=== PATIENT | male | born 1955 | race Caucasian/White ===

== ENCOUNTER 2018-03-02 17:39 | Observation (INO) ==
[2018-03-02] MEDS ORDERED: Sodium Chlor 0.9% Inj 500 ML IV.SIG SCH (18:00)
--- NOTE | 2018-03-02 18:28 | XR ---
EXAM DATE: 03/02/2018 5:56 PM EDT AGE/SEX: 62 years / Male INDICATIONS: Short of breath. CLINICAL DATA: This is the patient's initial encounter. Patient reports that signs and symptoms have been present for 1 day and indicates a pain score of 0/10. MEDICAL/SURGICAL HISTORY: None. . left shoulder. COMPARISON: [facility] [place], 05/12/[place]. . FINDINGS: A single AP view of the chest demonstrates the lungs to be symmetrically aerated without evidence of mass, infiltrate or effusion. The cardiomediastinal contours are unremarkable. Surgical hardware is seen at the proximal left humerus from prior fracturing.. CONCLUSION: No acute cardiopulmonary process. Electronically signed by: Finesse Zhang MD 03/02/2018 6:27 PM EDT
[2018-03-02 18:53] LABS: Alanine Aminotransferase 34 U/L (12-78)
[2018-03-02 18:56] LABS: Baso % (Auto) 0.2 % (0.0-2.0); Eos # (Auto) 0.1 th/mm3 (0.0-0.4); Eos % (Auto) 0.8 % (0.0-4.0); Hematocrit 34.1 % (39.0-51.0); Hemoglobin 11.8 gm/dL (13.0-17.0); Lymph # (Auto) 2.3 th/mm3 (1.0-4.8); Lymph % (Auto) 14.6 % (9.0-44.0); Mean Corpuscular HGB Conc 34.7 % (32.0-36.0); Mean Corpuscular Hemoglobin 39.7 pg (27.0-34.0); Mean Corpuscular Volume 114.3 fL (80.0-100.0); Mean Platelet Volume 8.9 fL (7.0-11.0); Mono % (Auto) 6.4 % (0.0-8.0); Neut # (Auto) 12.2 th/mm3 (1.8-7.7); Platelet Count 359 th/mm3 (150-450); Red Blood Count 2.99 mil/mm3 (4.50-5.90); Red Cell Distribution Width 16.8 % (11.6-17.2); White Blood Count 15.6 th/mm3 (4.0-11.0)
[2018-03-02 18:57] LABS: Albumin 2.6 g/dL (3.4-5.0); Anion Gap 12 meq/L (5-15); Aspartate Aminotransferase 45 U/L (15-37); Blood Urea Nitrogen 58 mg/dL (7-18); Carbon Dioxide 24.8 meq/L (21.0-32.0); Chloride 110 meq/L (98-107); Glomerular Filtration Rate 43 mL/min (>89); Glucose,Random 116 mg/dL (74-106); Magnesium 1.7 mg/dL (1.5-2.5); Sodium 147 meq/L (136-145)
--- NOTE | 2018-03-02 19:08 | CT ---
EXAM DATE: 03/02/2018 6:01 PM EDT AGE/SEX: 62 years / Male INDICATIONS: Altered mental status. CLINICAL DATA: This is the patient's initial encounter. Patient reports that signs and symptoms have been present for 1 day and indicates a pain score of 0/10. MEDICAL/SURGICAL HISTORY: None. None. RADIATION DOSE: 38.46 CTDI (mGy) COMPARISON: No prior exams available for comparison. TECHNIQUE: CT of the head without contrast. Using automated exposure control and adjustment of the mA and/or kV according to patient size, radiation dose was kept as low as reasonably achievable to ob tain optimal diagnostic quality images. DICOM format image data is available electronically for revi ew and comparison. FINDINGS: Cerebrum: The ventricles are normal for age. Cortical atrophy. No evidence of midline shift, mass l esion, hemorrhage or acute infarction. No extraaxial fluid collections are seen. Posterior Fossa: The cerebellum and brainstem are intact. The 4th ventricle is midline. The cerebe llopontine angle is unremarkable. Extracranial: The visualized portion of the orbits is intact. Skull: The calvaria is intact. No evidence of skull fracture. CONCLUSION: 1. Cortical atrophy. 2. No acute intracranial abnormality. . Electronically signed by: Bacilio Vail MD 03/02/2018 7:06 PM EDT
--- NOTE | 2018-03-02 19:27 | ED ---
HPI General Chief complaint: Weakness Stated complaint: EXPARTE/VCSO Time Seen by Provider: 03/02/18 17:40 Source: patient, EMS and other (EXPARTE) Mode of arrival: EMS Limitations: altered mental status History of Present Illness HPI Narrative: 62-year-old male the presents to the ED for evaluation of expected. Patient was expected by police as patient apparently has been not taking care of himself. Apparently per family he is basically not taking care of himself. Not eating. Not drinking. Not taking his medications. This appears to have been going for some time. EVAC was called and brought the patient here. Per EVAC the house where he lives is filthy and does not seem like he is taking care of it at all. Patient himself has no complaints. He does appear to have what appears to be purulence to his eyes. When asked how long he had an infection in his eye he states that nobody has ever told him that he had problems with his eyes. He does appear to go in and out of alteration. He denies any chest pain or shortness of breath. Denies any urinary symptoms. No abdominal pain. He does seem to minimalize everything but also he does appear to be some what demented. He is not a great historian. He does apparently take lisinopril and Prilosec as his only medications. Related Data Home Medications Medication Instructions Recorded Confirmed Prilosec 03/02/18 lisinopril 03/02/18 Allergies Allergy/AdvReac Type Severity Reaction Status Date / Time No Known Allergies Uncoded 06/10/09 16:15 Review of Systems ROS: all other systems reviewed are negative [facility] Social History Social History Smoking Status: Unknown if ever smoked How Often Do You Have a Drink Containing Alcohol: Unable to Obtain Immunization History Tetanus Immunization: Unsure Exam Narrative Exam Narrative: GENERAL: Well appearing SKIN: Focused skin assessment warm/dry. HEAD: Atraumatic. Normocephalic. EYES: Pupils equal and round 4 mms reactive to light and accommodation.. No scleral icterus. No injection or drainage. EOM intact bilaterally. Patient does have some drainage from both eyes but more noticeable on the left than the right. Patient does have conjunctival irritation in the left eye not on the right. Eyelids themselves appear to have blepharitis on the with swelling of the eyelids. ENT: No nasal bleeding or discharge. Mucous membranes pink and moist. Tongue is midline. No uvula deviation. NECK: Trachea midline. No JVD. CARDIOVASCULAR: Regular rate and rhythm. No murmur appreciated. RESPIRATORY: No accessory muscle use. Clear to auscultation. Breath sounds equal bilaterally. GASTROINTESTINAL: Abdomen soft, non-tender, nondistended. Hepatic and splenic margins not palpable. MUSCULOSKELETAL: No obvious deformities. No clubbing. No cyanosis. No edema. Full range of motion of the upper and lower extremities bilaterally. 2+ pulses bilaterally. NEUROLOGICAL: Awake and alert. No obvious cranial nerve deficits. Motor grossly within normal limits. Normal speech. PSYCHIATRIC: Appropriate mood and affect; insight and judgment normal. Course Initial Documented Vital Signs Temperature 97.6 F 03/02/18 17:47 Pulse Rate 110 H 03/02/18 17:47 Respiratory Rate 15 03/02/18 17:47 Blood Pressure 150/76 H 03/02/18 17:47 Pulse Oximetry 95 03/02/18 17:47 Last Documented Vital Signs Temperature 97.6 F 03/02/18 17:47 Pulse Rate 110 H 03/02/18 17:47 Respiratory Rate 15 03/02/18 17:47 Blood Pressure 150/76 H 03/02/18 17:47 Pulse Oximetry 95 03/02/18 17:47 Medical Decision Making [facility] Narrative Medical decision making narrative: 62-year-old male the presents to the ED for evaluation of XRT. Patient was properly examined and was found to have signs and symptoms consistent with appears to be expected. He does appear to be very dehydrated and malnourished. He does appear to have an infection to both of his eyelids appears to be bacterial conjunctivitis. Labs and imaging were ordered. Labs and imaging did show elevated white blood cell count. The hydration noted as well. Patient will be started on IV fluids. Patient was started on IV antibiotics as well as antibiotics for the eye. Because of the patient's mental status and unclear history with the recommend admission for further evaluation and treatment. Patient would require psychiatric evaluation as well. ENRICO was paged and Dr. Eduardo agrees to admission to her service. Medical Screen Exam Complete: Yes Emergency Medical Condition: Yes Differential Diagnosis Differential Diagnosis: Failure to thrive versus dehydration versus sepsis versus UTI versus ACS versus syncope versus depression Medical Records Medical records reviewed: Yes I reviewed the patient's medical records. Lab Data Lab results reviewed: Yes I reviewed the patient's lab results. Lab results narrative: troponin of 0.04 Result diagrams: 03/02/18 18:00 03/02/18 18:00 Lab Results 03/02/18 03/02/18 03/02/18 Range/Units 18:00 18:00 19:25 WBC 15.6 H (4.0-11.0) th/mm3 RBC 2.99 L (4.50-5.90) mil/mm3 Hgb 11.8 L (13.0-17.0) gm/dL Hct 34.1 L (39.0-51.0) % MCV 114.3 H (80.0-100.0) fL MCH 39.7 H (27.0-34.0) pg MCHC 34.7 (32.0-36.0) % RDW 16.8 (11.6-17.2) % Plt Count 359 (150-450) th/mm3 MPV 8.9 (7.0-11.0) fL Neut % (Auto) 78.0 H (16.0-70.0) % Lymph % (Auto) 14.6 (9.0-44.0) % [place] % (Auto) 6.4 (0.0-8.0) % Eos % (Auto) 0.8 (0.0-4.0) % Baso % (Auto) 0.2 (0.0-2.0) % Neut # (Auto) 12.2 H (1.8-7.7) th/mm3 Lymph # (Auto) 2.3 (1.0-4.8) th/mm3 [place] # (Auto) 1.0 H (0.0-0.9) th/mm3 Eos # (Auto) 0.1 (0.0-0.4) th/mm3 Baso # (Auto) 0.0 (0.0-0.2) th/mm3 WBC Differential . Differential Comment Auto diff final Sodium 147 H (136-145) meq/L Potassium 4.0 (3.5-5.1) meq/L Chloride 110 H (98-107) meq/L Carbon Dioxide 24.8 (21.0-32.0) meq/L Anion Gap 12 (5-15) meq/L BUN 58 H (7-18) mg/dL Creatinine 1.62 H (0.60-1.30) mg/dL Estimated GFR 43 L (>89) mL/min Random Glucose 116 H (74-106) mg/dL Lactic Acid 1.9 (0.4-2.0) mmol/L Calcium 9.0 (8.5-10.1) mg/dL Magnesium 1.7 (1.5-2.5) mg/dL Total Bilirubin 0.8 (0.2-1.0) mg/dL AST 45 H (15-37) U/L ALT 34 (12-78) U/L Alkaline Phosphatase 90 (45-117) U/L Total Creatine Kinase 116 (39-308) U/L Troponin I 0.04 (0.02-0.05) ng/mL Total Protein 6.6 (6.4-8.2) g/dL Albumin 2.6 L (3.4-5.0) g/dL TSH 2.210 (0.358-3.740) uIU/mL Imaging Data Attestation: I personally reviewed and interpreted this imaging study as follows : Radiologist's impression: Chest X-Ray 03/02/18 17:56 CONCLUSION: No acute cardiopulmonary process. Head CT 03/02/18 17:56 CONCLUSION: 1. Cortical atrophy. 2. No acute intracranial abnormality. . ECG Data Attestation: I personally reviewed and interpreted this ECG as follows: Interpretation: EKG shows sinus rhythm with no sign of acute ischemia and arrhythmia read by me and attending. Discharge Plan Discharge Disposition Patient Disposition: 30 Still Patient Discharge Details Diagnosis: Dehydration, Adult failure to thrive, Conjunctivitis, Acute kidney injury Physicians Team ED Provider: Rebel Harris ED Midlevel Provider: Josh Pierce Primary Care Provider: Primary Care Sri Caro Attending Provider: Tania Eduardo Status ED Status: Admitted Patient
[2018-03-02 19:30] LABS: Alkaline Phosphatase 90 U/L (45-117); Creatine Kinase 116 U/L (39-308); Total Protein 6.6 g/dL (6.4-8.2); Troponin I 0.04 ng/mL (0.02-0.05)
[2018-03-02] MEDS ORDERED: Piperacil/Tazo 3.375 GM Premix 50 ML IV.SIG ONE (20:17)
[2018-03-02] MEDS ORDERED: Erythromycin 0.5% Opth Oint 3.5 GM Tube EACH EYE ONE (20:17)
[2018-03-02] MEDS: Sod Chloride 0.9% Inj 1,000 ML IV.SIG SCH (20:40)
[2018-03-02] MEDS ORDERED: Acetaminophen 325 MG Tablet PO PRN (21:55)
[2018-03-02] MEDS ORDERED: Bisacodyl 10 MG Supp RECTAL PRN (21:55)
--- NOTE | 2018-03-02 22:05 | P.HP ---
History of Present Illness Service: [facility] Primary Care Physician: No Primary Care Physician History of Present Illness: 62-year-old male with a past medical history significant for hypertension and hyperlipidemia was brought in the emergency department under ex parte for further evaluation. The patient was reportedly found in his home covered in urine and feces and unable to care for himself. During her interview, the patient believes that he is in a bank. 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 He denies having any difficulties with self-care including bathing and feeding himself. He does report he was doing well until a few days ago when he started to feel as if his body was falling apart and he became more tired than usual. He reports he does not see a doctor and does not take medication because he cannot afford them. He believes it is 2017 and he is in [facility]. He denies any chest pain or shortness of breath. No fevers/chills. No abdominal pain. No nausea/vomiting/diarrhea. No lateralizing signs/symptoms. The patient has purulent drainage and crusting surrounding his left eye and both eyes are erythematous. He denies having any eye pain, blurriness or symptoms. Inpatient Certification: I certify that the inpatient services were ordered in accordance with Medicare regulations governing the order. This includes certification that hospital inpatient services are reasonable and necessary and in the case of services not specified as inpatient-only under 42 CFR 419.22(n), that they are appropriately provided as inpatient services in accordance to with the 2-midnight benchmark under 43 CFR 412.3(e) Review of Systems All other systems reviewed negative except as stated in HPI [facility] - History History Provided By: Patient, International Operations Manager / EMT - Medical History Medical History: Medical History (Last Updated 03/02/18 @ 22:01 by Tania Eduardo MD) Hyperlipidemia Hypertension - Surgical History Surgical History: Surgical History (Last Updated 03/02/18 @ 22:01 by Tania Eduardo MD) No history of previous surgery - Family History Family History: Family History (Last Updated 03/02/18 @ 22:01 by Tania Eduardo MD) Other Family history normal - Tobacco History Smoking Status: Unknown if ever smoked - Alcohol History How Often Do You Have a Drink Containing Alcohol: Unable to Obtain - Immunization History Tetanus Immunization: Unsure Medications and Allergies Active Medications: Active Medications Sodium Chloride (Ns Inj) 500 mls @ 0 mls/hr IV.SIG BOLUS MAURIZIO Last Infusion: 03/02/18 21:55 Dose: Infused Sodium Chloride (Ns Inj) 1,000 mls @ 0 mls/hr IV.SIG BOLUS MAURIZIO Last Infusion: 03/02/18 21:54 Dose: Infused Allergies Allergy/AdvReac Type Severity Reaction Status Date / Time No Known Allergies Uncoded 06/10/09 16:15 Home Medications Medication Instructions Recorded Confirmed Type Prilosec 03/02/18 History lisinopril 03/02/18 History Exam Vital signs: Vital Signs 03/02/18 17:47 Temperature 97.6 F Pulse Rate 110 H Respiratory Rate 15 Blood Pressure 150/76 H Pulse Oximetry 95 Intake & Output 03/02/18 03/02/18 03/03/18 06:59 18:59 06:59 Intake Total 1500 / 1500 Balance 1500 / 1500 Weight 65.771 kg Intake: IV 1500 / 1500 NS Inj 1,000 ML @ Wide Open IV. 1000 / 1000 SIG BOLUS MAURIZIO Rx#:[id number] NS Inj 500 ML @ Wide Open IV. 500 / 500 SIG BOLUS MAURIZIO Rx#:[id number] Narrative: Gen.: No acute distress Head: Normocephalic. Atraumatic. EENT: Pupils equal round and reactive to light. Positive bilateral conjunctival injection. Left eye with purulent drainage and surrounding crust. Nose without drainage. Airway intact. Throat without injection. Cardiovascular: Regular rate and rhythm. No murmurs, rubs or gallops. Respiratory: Lungs clear to auscultation bilaterally. No wheezes or rhonchi. Abdomen: Soft, nontender, nondistended. No peritoneal signs. Musculoskeletal: No gross deformities. No edema. Skin: No obvious rashes or erythema. Neuro: Sensory and motor grossly intact. Cranial nerves II through XII grossly intact. Results - Labs CBC & Chem 7: 03/02/18 18:00 03/02/18 18:00 Labs: Laboratory Results - last 24 hr 03/02/18 03/02/18 03/02/18 18:00 18:00 19:25 WBC 15.6 H RBC 2.99 L Hgb 11.8 L Hct 34.1 L MCV 114.3 H MCH 39.7 H MCHC 34.7 RDW 16.8 Plt Count 359 MPV 8.9 Neut % (Auto) 78.0 H Lymph % (Auto) 14.6 [place] % (Auto) 6.4 Eos % (Auto) 0.8 Baso % (Auto) 0.2 Neut # (Auto) 12.2 H Lymph # (Auto) 2.3 [place] # (Auto) 1.0 H Eos # (Auto) 0.1 Baso # (Auto) 0.0 WBC Differential . Differential Comment Auto diff final Sodium 147 H Potassium 4.0 Chloride 110 H Carbon Dioxide 24.8 Anion Gap 12 BUN 58 H Creatinine 1.62 H Estimated GFR 43 L Random Glucose 116 H Lactic Acid 1.9 Calcium 9.0 Magnesium 1.7 Total Bilirubin 0.8 AST 45 H ALT 34 Alkaline Phosphatase 90 Total Creatine Kinase 116 Troponin I 0.04 Total Protein 6.6 Albumin 2.6 L TSH 2.210 - Imaging Impressions Chest X-Ray 03/02/18 17:56 CONCLUSION: No acute cardiopulmonary process. Head CT 03/02/18 17:56 CONCLUSION: 1. Cortical atrophy. 2. No acute intracranial abnormality. . Caprini VTE Risk Assessment Caprini VTE Risk Assessment: Moderate/High Risk (score >= 2) Caprini Risk Assessment Model: Point Value = 1 Point Value = 2 Point Value = 3 Point Value = 5 Age 41-60 Minor surgery BMI > 25 kg/m2 Swollen legs Varicose veins or History of unexplained or recurrent spontaneous Oral contraceptives or hormone replacement Sepsis (< 1 month) Serious lung disease, including pneumonia (< 1 month) Abnormal pulmonary function Acute myocardial infarction Congestive heart failure (< 1 month) History of inflammatory bowel disease Medical patient at bed rest Age 61-74 Arthroscopic surgery Major open surgery (> 45 min) Laparoscopic surgery (> 45 min) Malignancy Confined to bed (> 72 hours) Immobilizing plaster cast Central venous access Age >= 75 History of VTE Family history of VTE Factor V Leiden Prothrombin [id number] Lupus anticoagulant Anticardiolipin antibodies Elevated serum homocysteine Heparin-induced thrombocytopenia Other congenital or acquired thrombophilia Stroke (< 1 month) Elective arthroplasty Hip, pelvis, or leg fracture Acute spinal cord injury (< 1 month) Prophylaxis Regimen: Total Risk Factor Score Risk Level Prophylaxis Regimen 0-1 Low Early ambulation 2 Moderate Order ONE of the following: *Sequential Compression Device (SCD) *Heparin 5000 units SQ BID 3-4 Higher Order ONE of the following medications: *Heparin 5000 units SQ TID *Enoxaparin/Lovenox 40 mg SQ daily (WT < 150 kg, CrCl > 30 mL/min) *Enoxaparin/Lovenox 30 mg SQ daily (WT < 150 kg, CrCl > 10-29 mL/min) *Enoxaparin/Lovenox 30 mg SQ BID (WT < 150 kg, CrCl > 30 mL/min) AND/OR *Sequential Compression Device (SCD) 5 or more Highest Order ONE of the following medications: *Heparin 5000 units SQ TID (Preferred with Epidurals) *Enoxaparin/Lovenox 40 mg SQ daily (WT < 150 kg, CrCl > 30 mL/min) *Enoxaparin/Lovenox 30 mg SQ daily (WT < 150 kg, CrCl > 10-29 mL/min) *Enoxaparin/Lovenox 30 mg SQ BID (WT < 150 kg, CrCl > 30 mL/min) AND *Sequential Compression Device (SCD) Assessment and Plan - Plan Assessment/plan: 1. Acute kidney injury Creatinine 1.62, no baseline for comparison BUN 58 Likely secondary to dehydration IV fluid hydration Monitor renal function 2. Conjunctivitis Cipro drops Culture pending 3. Ex parte/FTT Psychiatry consulted, appreciate recommendations Case management consulted to assist in discharge planning 4. Hypertension/hyperlipidemia Patient does not take any home medications Clonidine as needed Lipid profile pending [facility] Heart healthy diet Electrolytes: Monitor and replete as needed Heparin NS at 100 cc/hour
[2018-03-02] MEDS: CIPROFLOXACIN 0.3% EACH EYE SCH (22:26)
[2018-03-02] MEDS: OPTH EACH EYE SCH (22:26)
[2018-03-02] MEDS: Sod Chloride 0.9% Inj 1,000 ML IV.CONT SCH (22:27)
[2018-03-02] MEDS: Heparin - SQ 10,000 UNITS/ML Vial SQ SCH (22:28)
[2018-03-03 02:37] LABS: Bacteria,Urine Rare /hpf; Bilirubin,Urine Negative (Negative); Clarity,Urine Clear (Clear); Color,Urine Amber (Yellw/Straw); Glucose,Urine (UA) Negative (Negative); Hyaline Casts,Urine 19 /lpf (0-3); Leukocyte Esterase,Urine Negative (Negative); Nitrite,Urine Negative (Negative); Specific Gravity,Urine 1.018 (1.002-1.035); Urobilinogen,Urine 4 or Greater mg/dL (Less than 2)
[2018-03-03 04:38] LABS: Baso # (Auto) 0.1 th/mm3 (0.0-0.2); Baso % (Auto) 0.6 % (0.0-2.0); Eos # (Auto) 0.2 th/mm3 (0.0-0.4); Eos % (Auto) 1.3 % (0.0-4.0); Hematocrit 32.1 % (39.0-51.0); Hemoglobin 10.7 gm/dL (13.0-17.0); Lymph # (Auto) 2.5 th/mm3 (1.0-4.8); Lymph % (Auto) 17.5 % (9.0-44.0); Mean Corpuscular HGB Conc 33.3 % (32.0-36.0); Mean Corpuscular Hemoglobin 39.4 pg (27.0-34.0); Mean Corpuscular Volume 118.1 fL (80.0-100.0); Mean Platelet Volume 7.9 fL (7.0-11.0); Mono % (Auto) 7.1 % (0.0-8.0); Neut # (Auto) 10.4 th/mm3 (1.8-7.7); Neut % (Auto) 73.5 % (16.0-70.0); Platelet Count 284 th/mm3 (150-450); Red Blood Count 2.72 mil/mm3 (4.50-5.90); Red Cell Distribution Width 17.1 % (11.6-17.2); White Blood Count 14.1 th/mm3 (4.0-11.0)
[2018-03-03 05:01] LABS: Carbon Dioxide 21.3 meq/L (21.0-32.0); Chol/HDL Ratio 3.24 Ratio; HDL Cholesterol 39.4 mg/dL (40.0-60.0)
[2018-03-03] MEDS: OPTH EACH EYE SCH ×3 (06:19→21:09)
[2018-03-03] MEDS: CIPROFLOXACIN 0.3% EACH EYE SCH ×3 (06:19→21:09)
--- NOTE | 2018-03-03 08:50 | P.PNIM ---
Subjective Interval history: f/u; BOBO in no acute distress. denies pain. he says that 'I'm in the bank'. no fever. Physical Exam Vital signs: Vital Signs 03/02/18 17:47 03/02/18 17:51 03/03/18 00:00 Temperature 97.6 F 97.7 F Pulse Rate 110 H 66 84 Respiratory Rate 15 23 16 Blood Pressure 150/76 H 165/92 H 147/74 H Pulse Oximetry 95 100 03/03/18 04:00 03/03/18 07:34 Temperature 97.8 F 98.1 F Pulse Rate 90 93 H Respiratory Rate 18 16 Blood Pressure 137/86 159/77 H Pulse Oximetry 94 L 100 Intake & Output 03/02/18 03/03/18 03/03/18 18:59 06:59 18:59 Intake Total 1500 / 1500 Balance 1500 / 1500 Weight 65.771 kg 65.771 kg Intake: IV 1500 / 1500 NS Inj 1,000 ML @ Wide Open IV. 1000 / 1000 SIG BOLUS MAURIZIO Rx#:[id number] NS Inj 500 ML @ Wide Open IV. 500 / 500 SIG BOLUS MAURIZIO Rx#:[id number] Other: Weight On Admission 65.771 kg - Constitutional no acute distress - Routine HEENT Exam Eye: Present: conjunctivae pink (on the left eye.) - Routine Respiratory Exam Present: CTA bilaterally - Routine Cardiovascular Exam Present: RRR - Routine Abdominal Exam Present: soft - Routine Extremities Exam Comments: no pedal edema. - Routine Neurological Exam Present: alert, oriented X3 Results - Labs CBC & Chem 7: 03/03/18 04:00 03/03/18 04:00 Laboratory Results - last 24 hr 03/02/18 03/02/18 03/02/18 18:00 18:00 19:25 WBC 15.6 H RBC 2.99 L Hgb 11.8 L Hct 34.1 L MCV 114.3 H MCH 39.7 H MCHC 34.7 RDW 16.8 Plt Count 359 MPV 8.9 Neut % (Auto) 78.0 H Lymph % (Auto) 14.6 [place] % (Auto) 6.4 Eos % (Auto) 0.8 Baso % (Auto) 0.2 Neut # (Auto) 12.2 H Lymph # (Auto) 2.3 [place] # (Auto) 1.0 H Eos # (Auto) 0.1 Baso # (Auto) 0.0 WBC Differential . Differential Comment Auto diff final Sodium 147 H Potassium 4.0 Chloride 110 H Carbon Dioxide 24.8 Anion Gap 12 BUN 58 H Creatinine 1.62 H Estimated GFR 43 L Random Glucose 116 H Lactic Acid 1.9 Calcium 9.0 Magnesium 1.7 Total Bilirubin 0.8 AST 45 H ALT 34 Alkaline Phosphatase 90 Total Creatine Kinase 116 Troponin I 0.04 Total Protein 6.6 Albumin 2.6 L Triglycerides Cholesterol LDL Cholesterol, Calc HDL Cholesterol Cholesterol/HDL Ratio TSH 2.210 Urine Color Urine Clarity Urine pH Ur Specific [place] Urine Protein Urine Glucose (UA) Urine Ketones Urine Occult Blood Urine Nitrate Urine Bilirubin Urine Urobilinogen Ur Leukocyte Esterase Urine RBC Urine WBC Urine Bacteria Hyaline Casts Micro UA Comment Ur Microscopic Review Urine Culture Comments 03/03/18 03/03/18 03/03/18 02:05 04:00 04:00 WBC 14.1 H RBC 2.72 L Hgb 10.7 L Hct 32.1 L MCV 118.1 H D MCH 39.4 H MCHC 33.3 RDW 17.1 Plt Count 284 MPV 7.9 Neut % (Auto) 73.5 H Lymph % (Auto) 17.5 [place] % (Auto) 7.1 Eos % (Auto) 1.3 Baso % (Auto) 0.6 Neut # (Auto) 10.4 H Lymph # (Auto) 2.5 [place] # (Auto) 1.0 H Eos # (Auto) 0.2 Baso # (Auto) 0.1 WBC Differential . Differential Comment Auto diff final Sodium 146 H Potassium 4.0 Chloride 114 H Carbon Dioxide 21.3 Anion Gap 11 BUN 47 H Creatinine 1.28 Estimated GFR 57 L Random Glucose 75 Lactic Acid Calcium 8.0 L D Magnesium Total Bilirubin AST ALT Alkaline Phosphatase Total Creatine Kinase Troponin I Total Protein Albumin Triglycerides 220 H Cholesterol 128 LDL Cholesterol, Calc 45 HDL Cholesterol 39.4 L Cholesterol/HDL Ratio 3.24 TSH Urine Color Luz Urine Clarity Clear Urine pH 5.0 Ur Specific [place] 1.018 Urine Protein Negative Urine Glucose (UA) Negative Urine Ketones Negative Urine Occult Blood Negative Urine Nitrate Negative Urine Bilirubin Negative Urine Urobilinogen 4 or greater Ur Leukocyte Esterase Negative Urine RBC Less than 1 Urine WBC 2 Urine Bacteria Rare H Hyaline Casts 19 Micro UA Comment Culture not ind Ur Microscopic Review Not Reportable Urine Culture Comments Culture not ind - Imaging Impressions Chest X-Ray 03/02/18 17:56 CONCLUSION: No acute cardiopulmonary process. Head CT 03/02/18 17:56 CONCLUSION: 1. Cortical atrophy. 2. No acute intracranial abnormality. . Assessment and Plan - Plan 1. Acute kidney injury improved after IV hydration. Likely secondary to dehydration continue IV fluid Monitor renal function 2. Conjunctivitis Cipro drops Culture pending 3. Ex parte/FTT Psychiatry consulted, appreciate recommendations Case management consulted to assist in discharge planning 4. Hypertension/hyperlipidemia Patient does not take any home medications Clonidine as needed will consider starting on Amlodipine if BP remains elevated. will continue to monitor for now 5.macrocytic anemia; will check B12/ folic acid level FEN Heart healthy diet Electrolytes: Monitor and replete as needed Heparin NS at 100 cc/hour Discharge Planning: dc planning; within the next 24 hrs; awaiting psych recommendation.
[2018-03-03] MEDS: Heparin - SQ 10,000 UNITS/ML Vial SQ SCH ×2 (10:06→22:11)
[2018-03-03] MEDS: Senna/Docusate Sodium 8.6/50 MG Tablet PO SCH ×2 (10:06→21:11)
[2018-03-03] MEDS: Sod Chloride 0.9% Inj 1,000 ML IV.SIG SCH ×2 (10:06→16:36)
[2018-03-03 10:40] LABS: Folate 3.1 ng/mL (3.1-17.5)
--- NOTE | 2018-03-03 10:47 | ECG ---
Date Performed: 03/02/2018 Time Performed: 17:50:03 PTAGE: 62 years EKG: Sinus rhythm BORDERLINE LEFT AXIS DEVIATION ST DEVIATION AND MODERATE T-WAVE ABNORMALITY, CONSIDER ANTEROLATERAL ISCHEMIA ST DEVIATION AND MODERATE T-WAVE ABNORMALITY, CONSIDER INFERIOR ISCHEMIA ABNORMAL ECG INTERP RETATION BASED ON A DEFAULT AGE OF 40 YEARS PREVIOUS TRACING : 05/12/2011 13.43 DOCTOR: Wilber Forman Interpretating Date/Time 03/03/2018 10:46:21
--- NOTE | 2018-03-03 14:29 | P.CONPSY ---
Provisional Diagnosis Admission Date: March 02, 2018 21:55 [place].: Dementia History of Present Illness Service: ER Primary Care Provider: No Primary Care Physician History of Present Illness: The patient is a 62-year-old man, with unknown psychiatric history, with a past medical history significant for hypertension and hyperlipidemia was brought in the emergency department under ex parte . The patient was reportedly found in his home covered in urine and feces and unable to care for himself. The patient believes that he is in a bank. 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 He denies having any difficulties with self- care including bathing and feeding himself. He does report he was doing well until a few days ago when he started to feel as if his body was falling apart and he became more tired than usual. He reports he does not see a doctor and does not take medication because he cannot afford them. He believes it is 2017 and he is in [facility]. The patient believes that I am a customer waiting in the bank. But other than that he is calm, seems to be in a good spirit, reports to be in a good mood, denies depression, denies anxiety, he denies suicidal and homicidal ideation, denies visual and auditory hallucinations. He was admitted due to acute kidney injury, Creatinine 1.62, no baseline for comparison, BUN 58, Likely secondary to dehydration. He also has a prominent conjunctivitis. No agitation, no aggressive behavior, no acute paranoia or delusions present. The patient does have a prominent confabulations. [facility] - History History Provided By: Patient - Medical History Medical History: Medical History (Last Reviewed 03/03/18 @ 09:05 by Bernardino Jordan) Hyperlipidemia Hypertension - Surgical History Surgical History: Surgical History (Last Updated 03/02/18 @ 22:01 by Tania Eduardo MD) No history of previous surgery - Family History Family History: Family History (Last Updated 03/02/18 @ 22:01 by Tania Eduardo MD) Other Family history normal - Tobacco History Second Hand Smoke Exposure: Yes Tobacco Use In Past 30 Days: Yes Smoking Status: Current every day smoker Tobacco Type: Cigarettes - Alcohol History How Often Do You Have a Drink Containing Alcohol: 4 or more times a week - Substance Use History Substance History: Active Abuse - Travel History Recent Travel in the [place] Within the Last 8 Weeks: No Recent Travel Out of the Country Within the Last 8 Weeks: No - Immunization History Tetanus Immunization: Unsure Medications and Allergies Active Medications: Active Medications Acetaminophen (Tylenol) 650 mg PO Q4H PRN PRN Reason: Temp > 100.4 Al Hydroxide/Mg Hydroxide (Milk Of Magnesia Liq) 30 ml PO Q12H PRN PRN Reason: Mild Constipation Bisacodyl (Dulcolax Supp) 10 mg RECTAL DAILY PRN PRN Reason: SEVERE CONSITIPATION Ciprofloxacin HCl (Ciloxan 0.3% Opth Oint) 1 applicatio EACH EYE Q8HR [facility] Last Admin: 03/03/18 06:19 Dose: 1 applicatio Clonidine HCl (Catapres) 0.1 mg PO Q6H PRN PRN Reason: SBP>160, DBP>90 Heparin Sodium (Porcine) (Heparin Inj) 5,000 units SQ Q12H [facility] Last Admin: 03/03/18 10:06 Dose: 5,000 units Sodium Chloride (Ns Inj) 500 mls @ 0 mls/hr IV.SIG BOLUS [facility] Last Infusion: 03/02/18 21:55 Dose: Infused Sodium Chloride (Ns Inj) 1,000 mls @ 0 mls/hr IV.SIG BOLUS [facility] Last Admin: 03/03/18 10:06 Dose: 100 mls/hr Sodium Chloride (Ns Inj) 1,000 mls @ 100 mls/hr IV.CONT .Q10H [facility] Last Admin: 03/02/18 22:27 Dose: 100 mls/hr Lactulose (Lactulose Liq) 30 ml PO DAILY PRN PRN Reason: SEVERE CONSITIPATION Ondansetron HCl (Zofran Inj) 4 mg IV.PUSH Q6H PRN PRN Reason: NAUSEA OR VOMITING Senna/Docusate Sodium (Emily-Colace) 1 tab PO BID [facility] Last Admin: 03/03/18 10:06 Dose: 1 tab Sennosides (Senokot) 17.2 mg PO Q12H PRN PRN Reason: Moderate Constipation Allergies Allergy/AdvReac Type Severity Reaction Status Date / Time No Known Allergies Uncoded 06/10/09 16:15 Home Medications Medication Instructions Recorded Confirmed Type Prilosec 03/02/18 History lisinopril 03/02/18 History Exam Vital signs: Vital Signs 03/02/18 17:47 03/02/18 17:51 03/03/18 00:00 Temperature 97.6 F 97.7 F Pulse Rate 110 H 66 84 Respiratory Rate 15 23 16 Blood Pressure 150/76 H 165/92 H 147/74 H Pulse Oximetry 95 100 03/03/18 04:00 03/03/18 07:34 03/03/18 12:00 Temperature 97.8 F 98.1 F 97.9 F Pulse Rate 90 93 H 88 Respiratory Rate 18 16 16 Blood Pressure 137/86 159/77 H 162/70 H Pulse Oximetry 94 L 100 94 L Intake & Output 03/02/18 03/03/18 03/03/18 18:59 06:59 18:59 Intake Total 1500 / 1500 Balance 1500 / 1500 Weight 65.771 kg 65.771 kg Intake: IV 1500 / 1500 NS Inj 1,000 ML @ Wide Open IV. 1000 / 1000 SIG BOLUS [facility] Rx#:[id number] NS Inj 500 ML @ Wide Open IV. 500 / 500 SIG BOLUS [facility] Rx#:[id number] Other: Weight On Admission 65.771 kg Mental Status Examination Appearance: Dirty, Disheveled Consciousness: Alert Orientation: Person Motor Activity: Normal gait Speech: Unremarkable Language: Adequate Fund of Knowledge: Poor Attention and Concentration: Adequate Memory: Impaired Affect: Appropriate Thought Process & Associations: Disorganized Thought Content: Bizarre thinking Hallucination Type: None Delusion Type: None Suicidal Ideation: No Suicidal Plan: No Suicidal Intention: No Homicidal Ideation: No Homicidal Plan: No Insight: Fair Judgment: Impulsive Assessment and Plan - Assessment (1) Dementia Code(s): F03.90 - Unspecified dementia without behavioral disturbance Status: Acute - Plan Plan: Estimated LOS: [] days On my psychiatric evaluation today the patient is no agitated, no aggressive, he is calm, cooperative, pleasantly confused. The patient is just oriented in person, completely disoriented in time and place. With prominent confabulations which is to be secondary to dementia. He denies depression, denies anxiety, denies juanito and psychosis. He denies suicidal and homicidal ideation, he denies visual and auditory hallucinations. Patient does not meet criteria for involuntary psychiatric admission. He is psychiatrically cleared to continue medical care. I will lift the Marinelli act. Justification for Continued Inpatient Stay: No admission indicated.
[2018-03-03] MEDS ORDERED: Haloperidol Inj 5 MG/ML Ampul IV.PUSH PRN (15:31)
[2018-03-03] MEDS: LORazepam 1 MG Tablet PO PRN (16:34)
[2018-03-03] MEDS: Sod Chloride 0.9% Inj 1,000 ML IV.CONT SCH ×2 (16:37→21:09)
[2018-03-04] MEDS: Sod Chloride 0.9% Inj 1,000 ML IV.CONT SCH ×2 (04:54→15:31)
[2018-03-04] MEDS: OPTH EACH EYE SCH ×3 (06:15→23:24)
[2018-03-04] MEDS: CIPROFLOXACIN 0.3% EACH EYE SCH ×3 (06:15→23:24)
[2018-03-04] MEDS: LORazepam 1 MG Tablet PO PRN ×3 (06:49→21:18)
[2018-03-04] MEDS: Senna/Docusate Sodium 8.6/50 MG Tablet PO SCH ×2 (10:14→21:18)
[2018-03-04] MEDS: Heparin - SQ 10,000 UNITS/ML Vial SQ SCH (10:21)
--- NOTE | 2018-03-04 11:26 | P.PNIM ---
Subjective Interval history: f/u; dementia in no acute distress. awake but confused. d/w the RN and no acute issues over night. Physical Exam Vital signs: Vital Signs 03/03/18 12:00 03/03/18 15:48 03/03/18 20:00 Temperature 97.9 F 97.7 F 97.9 F Pulse Rate 88 94 H 85 Respiratory Rate 16 16 16 Blood Pressure 162/70 H 127/74 128/63 Pulse Oximetry 94 L 98 99 03/04/18 00:00 03/04/18 07:34 03/04/18 11:17 Temperature 98.2 F 98.2 F 97.4 F L Pulse Rate 82 94 H 94 H Respiratory Rate 19 18 20 Blood Pressure 143/82 H 139/84 139/113 H Pulse Oximetry 95 97 96 Intake & Output 03/03/18 03/04/18 03/04/18 18:59 06:59 18:59 Intake Total 2000 / 1999 3000 / 3000 Balance 2000 / 2000 3000 / 3000 Intake: IV 2000 / 2000 3000 / 3000 NS Inj 1,000 ML @ 100 mls/hr IV 1000 / 1000 1999 / 2000 .CONT .Q10H [facility] Rx#:[id number] NS Inj 1,000 ML @ Wide Open IV. 1000 / 1000 1000 / 1000 SIG BOLUS MA[facility]IZIO Rx#:[id number] - Constitutional no acute distress - Routine Respiratory Exam Present: CTA bilaterally - Routine Cardiovascular Exam Present: RRR - Routine Abdominal Exam Present: soft - Routine Extremities Exam Comments: no pedal edema. - Routine Neurological Exam Present: alert Results - Labs CBC & Chem 7: 03/03/18 04:00 03/03/18 04:00 Microbiology 03/02/18 21:25 Blood - Peripheral Aerobic Blood Culture - Preliminary No growth in 2 days 03/02/18 21:25 Blood - Peripheral Anaerobic Blood Culture - Preliminary No growth in 2 days 03/02/18 21:25 Blood - Peripheral Aerobic Blood Culture - Preliminary No growth in 2 days 03/02/18 21:25 Blood - Peripheral Anaerobic Blood Culture - Preliminary No growth in 2 days 03/03/18 02:05 Eye - Left Gram Stain - Final Assessment and Plan - Plan 1. Acute kidney injury improved after IV hydration. Likely secondary to dehydration continue IV fluid Monitor renal function 2. Conjunctivitis Cipro drops Culture pending 3. Ex parte/FTT Psychiatry consulted, appreciate recommendations; welsh act lifted. Case management consulted to assist in discharge planning 4. Hypertension/hyperlipidemia Patient does not take any home medications Clonidine as needed will continue to monitor for now 5.macrocytic anemia; B12/ folic acid level WNL FEN Heart healthy diet Electrolytes: Monitor and replete as needed Heparin Discharge Planning: needs placement.
[2018-03-04 13:50] LABS: Carbon Dioxide 22.4 meq/L (21.0-32.0)
[2018-03-04 14:05] LABS: Baso # (Auto) 0.1 th/mm3 (0.0-0.2); Eos # (Auto) 0.2 th/mm3 (0.0-0.4); Eos % (Auto) 1.5 % (0.0-4.0); Hematocrit 31.2 % (39.0-51.0); Hemoglobin 10.4 gm/dL (13.0-17.0); Lymph % (Auto) 17.2 % (9.0-44.0); Mean Corpuscular HGB Conc 33.3 % (32.0-36.0); Mean Corpuscular Hemoglobin 39.5 pg (27.0-34.0); Mean Corpuscular Volume 118.7 fL (80.0-100.0); Mean Platelet Volume 8.5 fL (7.0-11.0); Neut # (Auto) 8.2 th/mm3 (1.8-7.7); Neut % (Auto) 71.3 % (16.0-70.0); Platelet Count 284 th/mm3 (150-450); Red Blood Count 2.63 mil/mm3 (4.50-5.90); White Blood Count 11.6 th/mm3 (4.0-11.0)
[2018-03-04] MEDS: Dextrose 5% in Water Inj 1,000 ML IV.CONT SCH (16:28)
[2018-03-05] MEDS: Heparin - SQ 10,000 UNITS/ML Vial SQ SCH ×2 (01:02→12:29)
[2018-03-05 07:33] LABS: Baso # (Auto) 0.1 th/mm3 (0.0-0.2); Baso % (Auto) 0.8 % (0.0-2.0); Eos # (Auto) 0.2 th/mm3 (0.0-0.4); Eos % (Auto) 2.2 % (0.0-4.0); Hematocrit 31.2 % (39.0-51.0); Hemoglobin 10.9 gm/dL (13.0-17.0); Lymph # (Auto) 2.2 th/mm3 (1.0-4.8); Lymph % (Auto) 20.7 % (9.0-44.0); Mean Corpuscular HGB Conc 34.9 % (32.0-36.0); Mean Corpuscular Hemoglobin 40.1 pg (27.0-34.0); Mean Platelet Volume 8.6 fL (7.0-11.0); Mono # (Auto) 0.9 th/mm3 (0.0-0.9); Mono % (Auto) 8.5 % (0.0-8.0); Neut # (Auto) 7.4 th/mm3 (1.8-7.7); Neut % (Auto) 67.8 % (16.0-70.0); Platelet Count 297 th/mm3 (150-450); Red Blood Count 2.71 mil/mm3 (4.50-5.90); Red Cell Distribution Width 16.9 % (11.6-17.2); White Blood Count 10.8 th/mm3 (4.0-11.0)
[2018-03-05] MEDS: OPTH EACH EYE SCH (07:42)
[2018-03-05] MEDS: CIPROFLOXACIN 0.3% EACH EYE SCH (07:42)
[2018-03-05] MEDS: Dextrose 5% in Water Inj 1,000 ML IV.CONT SCH ×3 (07:55→21:39)
[2018-03-05 07:56] LABS: Anion Gap 13 meq/L (5-15); Blood Urea Nitrogen 21 mg/dL (7-18); Calcium 8.3 mg/dL (8.5-10.1); Chloride 117 meq/L (98-107); Glomerular Filtration Rate Greater Than 89 mL/min (>89); Glucose,Random 75 mg/dL (74-106); Sodium 152 meq/L (136-145)
[2018-03-05] MEDS: Senna/Docusate Sodium 8.6/50 MG Tablet PO SCH ×2 (09:57→21:55)
--- NOTE | 2018-03-05 10:29 | P.PNIM ---
Subjective Interval history: in no acute distress. looks comfortable with no reported pain. Physical Exam Vital signs: Vital Signs 03/04/18 11:17 03/04/18 13:13 03/04/18 15:31 Temperature 97.4 F L 97.5 F L Pulse Rate 94 H 88 Respiratory Rate 20 20 Blood Pressure 139/113 H 142/88 H 171/80 H Pulse Oximetry 96 99 03/04/18 19:17 03/04/18 23:06 03/05/18 07:44 Temperature 97.6 F 98.2 F 98.4 F Pulse Rate 83 88 86 Respiratory Rate 18 18 18 Blood Pressure 140/81 153/85 H 156/89 H Pulse Oximetry 99 96 100 Intake & Output 03/04/18 03/05/18 03/05/18 18:59 06:59 18:59 Intake Total 800 / 800 1000 / 1000 Balance 800 / 800 1000 / 1000 Intake: IV 800 / 800 1000 / 1000 D5W Inj 1,000 ML @ 100 mls/hr 1000 / 1000 IV.CONT .Q10H [facility] Rx#:[id number] NS Inj 1,000 ML @ 70 mls/hr IV. 800 / 800 CONT .[id number] [facility] Rx#:[id number] Other: Date of Last Bowel Movement 03/04/18 03/04/18 - Constitutional no acute distress - Routine Respiratory Exam Present: CTA bilaterally - Routine Cardiovascular Exam Present: RRR - Routine Abdominal Exam Present: soft - Routine Extremities Exam Comments: no pedal edema. - Routine Neurological Exam Present: alert Results - Labs CBC & Chem 7: 03/05/18 06:03 03/05/18 06:03 Laboratory Results - last 24 hr 03/04/18 03/04/18 03/05/18 13:00 13:00 05:30 WBC 11.6 H RBC 2.63 L Hgb 10.4 L Hct 31.2 L MCV 118.7 H MCH 39.5 H MCHC 33.3 RDW 17.0 Plt Count 284 MPV 8.5 Prelim Diff (Auto) Slide review pending Neut % (Auto) 71.3 H Lymph % (Auto) 17.2 Lane % (Auto) 9.0 H Eos % (Auto) 1.5 Baso % (Auto) 1.0 Neut # (Auto) 8.2 H Lymph # (Auto) 2.0 Lane # (Auto) 1.0 H Eos # (Auto) 0.2 Baso # (Auto) 0.1 WBC Differential . Diff Scan Auto diff confirmed Differential Comment . Sodium 157 H* D Potassium 3.0 L D Chloride 118 H Carbon Dioxide 22.4 Anion Gap 17 H BUN 29 H Creatinine 0.98 Estimated GFR 78 L Random Glucose [address] C[address] diff Tox Epid 027 Negative 03/05/18 03/05/18 06:03 06:03 WBC 10.8 RBC 2.71 L Hgb 10.9 L Hct 31.2 L MCV 115.0 H D MCH 40.1 H MCHC 34.9 RDW 16.9 Plt Count 297 MPV 8.6 Prelim Diff (Auto) Neut % (Auto) 67.8 Lymph % (Auto) 20.7 Lane % (Auto) 8.5 H Eos % (Auto) 2.2 Baso % (Auto) 0.8 Neut # (Auto) 7.4 Lymph # (Auto) 2.2 Lane # (Auto) 0.9 Eos # (Auto) 0.2 Baso # (Auto) 0.1 WBC Differential . Diff Scan Differential Comment Auto diff final Sodium 152 H Potassium 3.0 L Chloride 117 H Carbon Dioxide 22.0 Anion Gap 13 BUN 21 H Creatinine 0.86 Estimated GFR Greater than 89 Random Glucose [address] C[address] diff Tox Epid 027 Microbiology 03/03/18 02:05 Eye - Left Gram Stain - Final 03/03/18 02:05 Eye - Left Wound Culture - Preliminary Staphylococcus species 03/02/18 21:25 Blood - Peripheral Aerobic Blood Culture - Preliminary No growth in 2 days 03/02/18 21:25 Blood - Peripheral Anaerobic Blood Culture - Preliminary No growth in 2 days 03/02/18 21:25 Blood - Peripheral Aerobic Blood Culture - Preliminary No growth in 2 days 03/02/18 21:25 Blood - Peripheral Anaerobic Blood Culture - Preliminary No growth in 2 days Assessment and Plan - Plan 1. Acute kidney injury improved after IV hydration. Likely secondary to dehydration continue IV fluid Monitor renal function 2. Conjunctivitis Cipro drops Culture with staph- awaiting the sensitivity 3. Ex parte/FTT Psychiatry consulted, appreciate recommendations; welsh act lifted. Case management consulted to assist in discharge planning 4. Hypertension/hyperlipidemia Patient does not take any home medications Clonidine as needed will continue to monitor for now 5.macrocytic anemia; B12/ folic acid level WNL 6-hypernatremia- improving continue D5W- monitor the sodium level; BMP tomorrow 7- hypokalemia; will replace and monitor. 8- history of alcohol abuse; started on CIWA FEN Heart healthy diet Electrolytes: Monitor and replete as needed Heparin Discharge Planning: needs placement.
[2018-03-05] MEDS: LORazepam 1 MG Tablet PO PRN ×2 (12:31→22:02)
[2018-03-05] MEDS: Polymyxin/Trimethop Opth Drops 10 ML Bottle LEFT EYE SCH ×2 (18:15→21:39)
[2018-03-06] MEDS: Heparin - SQ 10,000 UNITS/ML Vial SQ SCH ×3 (00:14→22:46)
[2018-03-06 05:50] LABS: Anion Gap 10 meq/L (5-15); Blood Urea Nitrogen 16 mg/dL (7-18); Calcium 8.3 mg/dL (8.5-10.1); Carbon Dioxide 22.3 meq/L (21.0-32.0); Chloride 112 meq/L (98-107); Glomerular Filtration Rate Greater Than 89 mL/min (>89); Glucose,Random 93 mg/dL (74-106); Potassium 3.1 meq/L (3.5-5.1); Sodium 144 meq/L (136-145)
[2018-03-06] MEDS: Polymyxin/Trimethop Opth Drops 10 ML Bottle LEFT EYE SCH ×4 (05:55→22:46)
[2018-03-06] MEDS: Senna/Docusate Sodium 8.6/50 MG Tablet PO SCH ×2 (08:28→21:04)
[2018-03-06] MEDS: Dextrose 5% in Water Inj 1,000 ML IV.CONT SCH ×2 (08:28→18:19)
--- NOTE | 2018-03-06 10:30 | P.PNIM ---
Subjective Interval history: f/u ;dementia/ hypernatremia in no acute distress. looks comfortable. clinically the same. d/w the RN and no acute issues over night. Physical Exam Vital signs: Vital Signs 03/05/18 11:52 03/05/18 20:28 03/06/18 00:00 Temperature 98.1 F 98.2 F 97.9 F Pulse Rate 87 82 82 Respiratory Rate 16 17 17 Blood Pressure 146/85 H 145/85 H 140/86 Pulse Oximetry 100 96 96 03/06/18 04:00 03/06/18 08:00 Temperature 97.0 F L 97.4 F L Pulse Rate 83 83 Respiratory Rate 17 16 Blood Pressure 130/79 128/82 Pulse Oximetry 100 100 Intake & Output 03/05/18 03/06/18 03/06/18 18:59 06:59 18:59 Intake Total 1000 / 1000 1000 / 1000 Balance 1000 / 1000 1000 / 1000 Intake: IV 1000 / 1000 1000 / 1000 D5W Inj 1,000 ML @ 100 mls/hr 1000 / 1000 1000 / 1000 IV.CONT .Q10H [facility] Rx#:[id number] Other: Date of Last Bowel Movement 03/04/18 03/05/18 - Constitutional no acute distress - Routine HEENT Exam Eye: Present: conjunctivae pink (left red eye.) - Routine Respiratory Exam Present: CTA bilaterally - Routine Cardiovascular Exam Present: RRR - Routine Abdominal Exam Present: soft - Routine Extremities Exam Comments: no pedal edema. - Routine Neurological Exam Present: alert Results - Labs CBC & Chem 7: 03/05/18 06:03 03/06/18 04:18 Laboratory Results - last 24 hr 03/05/18 03/06/18 05:30 04:18 Sodium 144 Potassium 3.1 L Chloride 112 H Carbon Dioxide 22.3 Anion Gap 10 BUN 16 Creatinine 0.82 Estimated GFR Greater than 89 Random Glucose 93 Calcium 8.3 L Stool C.difficile Ag Positive H Stool C.difficile Toxin Negative Stl C.difficile DNA Amp Positive H St C. diff Tox Epid 027 Negative Microbiology 03/03/18 02:05 Eye - Left Gram Stain - Final 03/03/18 02:05 Eye - Left Wound Culture - Final S. aureus MRSA 03/02/18 21:25 Blood - Peripheral Aerobic Blood Culture - Preliminary No growth in 3 days 03/02/18 21:25 Blood - Peripheral Anaerobic Blood Culture - Preliminary No growth in 3 days 03/02/18 21:25 Blood - Peripheral Aerobic Blood Culture - Preliminary No growth in 3 days 03/02/18 21:25 Blood - Peripheral Anaerobic Blood Culture - Preliminary No growth in 3 days Assessment and Plan - Plan 1. Acute kidney injury improved after IV hydration. Likely secondary to dehydration continue IV fluid Monitor renal function 2. Conjunctivitis continue with eye drops Culture with staph- awaiting the sensitivity 3. Ex parte/FTT Psychiatry consulted, appreciate recommendations; welsh act lifted. Case management consulted to assist in discharge planning 4. Hypertension/hyperlipidemia Patient does not take any home medications Clonidine as needed will continue to monitor for now 5.macrocytic anemia; B12/ folic acid level WNL 6-hypernatremia- improved. continue D5W- monitor the sodium level; BMP tomorrow 7- hypokalemia; will replace and monitor.check magnesium level today. 8- history of alcohol abuse; started on CIWA 9- diarrhea- improved- stool positive for C-diff Ag but negative for toxin FEN Heart healthy diet Electrolytes: Monitor and replete as needed Heparin d/w the son and the code status will be changed to 'No Code" per our discussion. Discharge Planning: needs placement.
[2018-03-06] MEDS ORDERED: Mag Sulf 1 gm/100 ml Premix 100 ML IV.SIG ONE (11:40)
[2018-03-06] MEDS: LORazepam 1 MG Tablet PO PRN (16:59)
[2018-03-07] MEDS: Polymyxin/Trimethop Opth Drops 10 ML Bottle LEFT EYE SCH ×4 (03:53→21:10)
[2018-03-07] MEDS ORDERED: Potassium Chlor 10 mEq Premix 10 MEQ/100 ML PIGGYBACK IV.SIG ONE (08:00)
[2018-03-07] MEDS: Senna/Docusate Sodium 8.6/50 MG Tablet PO SCH ×2 (08:11→21:10)
[2018-03-07 08:29] LABS: Calcium 8.5 mg/dL (8.5-10.1); Carbon Dioxide 18.3 meq/L (21.0-32.0); Potassium 3.3 meq/L (3.5-5.1)
[2018-03-07] MEDS: Dextrose 5% in Water Inj 1,000 ML IV.CONT SCH (08:51)
[2018-03-07] MEDS ORDERED: Magnesium Sulfate Inj 2 GM in Sodium Chlor 0.9% Inj 96 ML IV.SIG ONE (09:00)
[2018-03-07] MEDS: Heparin - SQ 10,000 UNITS/ML Vial SQ SCH ×2 (12:21→21:10)
--- NOTE | 2018-03-07 13:50 | P.PN ---
Subjective Interval history: He smiles and says everything is good. He is a known poor historian. Nursing reports no adverse events overnight but does say that he is eating very little by mouth. He does swallow okay. Just appears to be confused by meals even when they are fed to him. Physical Exam Vital signs: Vital Signs 03/06/18 15:55 03/06/18 20:00 03/07/18 00:00 Temperature 98.6 F 98.1 F Pulse Rate 97 H 92 H Respiratory Rate 16 17 15 Blood Pressure 119/73 122/82 Pulse Oximetry 100 96 03/07/18 01:25 03/07/18 04:00 03/07/18 07:37 Temperature 97.0 F L 98.0 F 97.4 F L Pulse Rate 84 87 94 H Respiratory Rate 17 16 20 Blood Pressure 118/70 114/70 106/73 Pulse Oximetry 95 96 97 03/07/18 11:55 Temperature 97.4 F L Pulse Rate 90 Respiratory Rate 16 Blood Pressure 118/76 Pulse Oximetry 96 Intake & Output 03/06/18 03/07/18 03/07/18 18:59 06:59 18:59 Intake Total 1100 / 1100 200 / 200 Balance 1100 / 1100 200 / 200 Intake: IV 1100 / 1100 200 / 200 D5W Inj 1,000 ML @ 100 mls/hr 1000 / 1000 IV.CONT .Q10H [facility] Rx#:[id number] Magnesium Sulfate 1 gm/D5W 100 100 / 100 ml Premix 100 ML @ 100 mls/hr IV.SIG ONCE ONE Rx#:[id number] Magnesium Sulfate Inj 2 GM In 100 / 100 NS Inj 96 ML @ 50 mls/hr IV.SIG ONCE ONE Rx#:[id number] KCl 10 mEq Premix Inj 10 meq In 100 / 100 100 ml @ 100 mls/hr IV.SIG ONCE ONE Rx#:[id number] Other: Date of Last Bowel Movement 03/06/18 Narrative: Gen.: No acute distress Head: Normocephalic. Atraumatic. EENT: Pupils equal round and reactive to light. Positive bilateral conjunctival injection. Left eye with purulent drainage and surrounding crust. Nose without drainage. Airway intact. Throat without injection. Cardiovascular: Regular rate and rhythm. Respiratory: Lungs clear to auscultation bilaterally. No wheezes or rhonchi. Abdomen: Soft, nontender, nondistended. Rounded compared to rest of body which is very thin. Musculoskeletal: No gross deformities. No edema. Skin: No obvious rashes or erythema. Neuro: Sensory and motor grossly intact. Cranial nerves II through XII grossly intact. Mental: Very poor historian Results - Labs CBC & Chem 7: 03/05/18 06:03 03/07/18 07:10 Laboratory Results - last 24 hr 03/07/18 07:10 Sodium 136 Potassium 3.3 L Chloride 104 D Carbon Dioxide 18.3 L Anion Gap 14 BUN 17 Creatinine 1.15 Estimated GFR 64 L Random Glucose 127 H Calcium 8.5 Microbiology 03/02/18 21:25 Blood - Peripheral Aerobic Blood Culture - Final No growth in 5 days 03/02/18 21:25 Blood - Peripheral Anaerobic Blood Culture - Final No growth in 5 days 03/02/18 21:25 Blood - Peripheral Aerobic Blood Culture - Final No growth in 5 days 03/02/18 21:25 Blood - Peripheral Anaerobic Blood Culture - Final No growth in 5 days Assessment and Plan - Plan 1. Acute kidney injury improved after IV hydration. Likely secondary to dehydration continue IV fluid Monitor renal function 2. Conjunctivitis continue with eye drops Culture with staph- sensitive 3. Ex parte/FTT Psychiatry consulted, appreciate recommendations; welsh act lifted. Case management consulted to assist in discharge planning 4. Hypertension/hyperlipidemia Patient does not take any home medications Clonidine as needed will continue to monitor for now 5.macrocytic anemia; B12/ folic acid level WNL 6-hypernatremia- got D5; improved. 7- hypokalemia; cont replacement as indicated and monitor.check magnesium. 8- history of alcohol abuse; started on CIWA 9- diarrhea- improved- stool positive for C-diff Ag but negative for toxin FEN Heart healthy diet Electrolytes: Monitor and replete as needed Heparin
[2018-03-08] MEDS: Dextrose 5% in Water Inj 1,000 ML IV.CONT SCH (02:48)
[2018-03-08] MEDS: Polymyxin/Trimethop Opth Drops 10 ML Bottle LEFT EYE SCH ×2 (02:49→09:52)
[2018-03-08 08:12] LABS: Calcium 8.2 mg/dL (8.5-10.1); Carbon Dioxide 18.3 meq/L (21.0-32.0); Magnesium 1.9 mg/dL (1.5-2.5); Potassium 3.3 meq/L (3.5-5.1)
[2018-03-08] MEDS ORDERED: Potassium Chlor 20 mEq Premix 20 MEQ/100 ML PIGGYBACK IV.SIG ONE ×2 (08:34→10:22)
[2018-03-08] MEDS: Senna/Docusate Sodium 8.6/50 MG Tablet PO SCH (08:38)
[2018-03-08] MEDS ORDERED: Potassium Chloride 10 MEQ ER Capsule PO SCH (09:00)
--- NOTE | 2018-03-08 09:00 | P.PNIM ---
Subjective Interval history: Nurse reported patient O2 sat decreased to the 70s placed on a simple mask and went up to the 90s. Nurse also reported patient is a DNR. Receiving IV fluid and treating for conjunctivitis. Patient laying in bed, responds to his name, opens eyes, However unable to answer questions. When asked to squeeze my arms my hands patient nods head sideways. Nurse reported patient is tachypneic in the 110's now down to 108, O2 sat at 4 L facial mask at 88 stat chest x-ray ordered and stat DuoNeb ordered and hold IV fluid. Labs will be ordered for ammonia level also. As patient looks like obtunded. Physical Exam Vital signs: Vital Signs 03/07/18 11:55 03/07/18 15:32 03/07/18 18:42 Temperature 97.4 F L 98.4 F 97.5 F L Pulse Rate 90 82 85 Respiratory Rate 16 12 18 Blood Pressure 118/76 92/63 L 104/60 Pulse Oximetry 96 97 96 03/07/18 20:00 03/08/18 00:00 03/08/18 04:00 Temperature 98.3 F 98.5 F 99.2 F Pulse Rate 85 90 109 H Respiratory Rate 18 18 18 Blood Pressure 120/89 116/72 100/60 Pulse Oximetry 96 98 94 L Intake & Output 03/07/18 03/08/18 03/08/18 18:59 06:59 18:59 Intake Total 1200 / 1200 Output Total 650 / 650 Balance 1200 / 1200 -650 / -650 Weight 63.3 kg Intake: IV 1200 / 1200 D5W Inj 1,000 ML @ 60 mls/hr IV 1000 / 1000 .CONT .[id number] [facility] Rx#:[id number] Magnesium Sulfate Inj 2 GM In 100 / 100 NS Inj 96 ML @ 50 mls/hr IV.SIG ONCE ONE Rx#:[id number] KCl 10 mEq Premix Inj 10 meq In 100 / 100 100 ml @ 100 mls/hr IV.SIG ONCE ONE Rx#:[id number] Output: Urine Amount (Catheter) 650 / 650 Straight 650 / 650 Narrative: GENERAL: Well-developed, ill looking elderly male, SKIN: Warm and dry. HEAD: Atraumatic. Normocephalic. EYES: Pupils equal and round. No scleral icterus. Left eye injection and crusting drainage . ENT: No nasal bleeding or discharge. Mucous membranes pink and moist. NECK: Trachea midline. No JVD. CARDIOVASCULAR: Regular rate and rhythm. RESPIRATORY: No accessory muscle use. Diminished with slight expiratory wheeze to auscultation. Breath sounds equal bilaterally. GASTROINTESTINAL: Abdomen round soft, non-tender, nondistended. MUSCULOSKELETAL: Extremities without clubbing, cyanosis, or edema. No obvious deformities. NEUROLOGICAL: Awake . No obvious cranial nerve deficits. Motor grossly within normal limits. Generalized weakness, garbled speech. PSYCHIATRIC: Flat mood and affect; insight and judgment poor. - Urinary Catheter Management Straight Cath placed during this visit: no Results - Labs CBC & Chem 7: 03/05/18 06:03 03/08/18 06:28 Laboratory Results - last 24 hr 03/08/18 06:28 Sodium 133 L Potassium 3.3 L Chloride 100 Carbon Dioxide 18.3 L Anion Gap 15 BUN 18 Creatinine 1.06 Estimated GFR 71 L Random Glucose 174 H Calcium 8.2 L Magnesium 1.9 D Microbiology 03/02/18 21:25 Blood - Peripheral Aerobic Blood Culture - Final No growth in 5 days 03/02/18 21:25 Blood - Peripheral Anaerobic Blood Culture - Final No growth in 5 days 03/02/18 21:25 Blood - Peripheral Aerobic Blood Culture - Final No growth in 5 days 03/02/18 21:25 Blood - Peripheral Anaerobic Blood Culture - Final No growth in 5 days Assessment and Plan - Assessment (1) Respiratory decompensation Code(s): J98.9 - Respiratory disorder, unspecified Status: Acute (2) Dehydration Code(s): E86.0 - Dehydration Status: Acute (3) Adult failure to thrive Code(s): R62.7 - Adult failure to thrive Status: Acute (4) Conjunctivitis Code(s): H10.9 - Unspecified conjunctivitis Status: Acute (5) Acute kidney injury Code(s): N17.9 - Acute kidney failure, unspecified Status: Acute (6) Dementia Code(s): F03.90 - Unspecified dementia without behavioral disturbance Status: Acute - Plan 62-year-old male with a past medical history significant for hypertension and hyperlipidemia Acute Respiratory decompensation/tachycardia/ Acute respiratory failure/ Hypotension -please see summary for more details. Staff discussed with family, comfort measures were choses. Ativan and morphine IV were ordered as needed. -stat chest x-ray ordered, and ABG -start duo nebs, solu medrol, Lasix, Zosyn. - transfer to [facility] [place] Hi-mary/ Bipap. Acute kidney injury improved after IV hydration. -Likely secondary to dehydration -Hold IV fluid for now due to respiratory decompensation -Monitor renal function Hypernatremia -improved, received D5; -monitor BMP Hypokalemia - cont replacement as indicated - monitor.check magnesium. Conjunctivitis -continue with eye drops -Left eye culture with MRSA Ex parte/FTT -Psychiatry consulted, appreciate recommendations; welsh act lifted. -Case management consulted to assist in discharge planning Hypertension/hyperlipidemia -Patient does not take any home medications -Clonidine as needed -Monitor blood pressure Macrocytic anemia B12/ folic acid level WNL -monitor CBC HX of alcohol abuse -started on CIWA Diarrhea- improved- stool positive for C-diff Ag but negative for toxin Code Status: DNR Discussed Condition With: nurse, respiratory Therapist and Dr Nielsen (4) Conjunctivitis Qualifiers: Conjunctivitis type: acute Acute conjunctivitis type: bacterial Laterality: bilateral Qualified Code(s): H10.33 - Unspecified acute conjunctivitis, bilateral
[2018-03-08 09:07] VITALS: TEMP 98.1; O2SAT 98
[2018-03-08 09:34] LABS: ABG Base Excess -9.2 mmol/L (-2-2); ABG PCO2 68 mmHg (38-42); ABG PO2 87 mmHg (61-120)
[2018-03-08] MEDS ORDERED: MethylPREDNISolone Sod Succinate Inj 125 MG/2 ML Vial IV.PUSH ONE (10:00)
--- NOTE | 2018-03-08 10:08 | XR ---
EXAM DATE: 03/08/2018 12:00 AM EDT AGE/SEX: 62 years / Male INDICATIONS: Dyspnea. CLINICAL DATA: This is the patient's initial encounter. Patient reports that signs and symptoms have been present for 3 days and indicates a pain score of Nonresponsive. MEDICAL/SURGICAL HISTORY: . none known . shoulder surgery COMPARISON: [facility] [place]ST 1V SINGLE AP, 03/02/2018. . FINDINGS: Mild diffuse interstitial prominence with linear parenchymal opacity at the left lung base and patchy airspace disease at the right lung base. Cardiac silhouette is in the upper limits of normal for siz e given portable technique. Central pulmonary vascularity is indistinct. Remainder of the exam is unc hanged. CONCLUSION: 1. Interval development of diffuse interstitial prominence consistent with interstitial edema. 2. Indistinct central pulmonary vascularity consistent with positive fluid balance. 3. Linear left lower lobe airspace disease consistent with atelectasis. 4. Patchy airspace disease in the right lower lung zone which likely reflects atelectasis although d ifferential considerations include pneumonia and aspiration in the appropriate clinical setting. Electronically signed by: Eldon Rhodes MD 03/08/2018 10:07 AM EDT
[2018-03-08] MEDS ORDERED: Morphine Inj 4 MG/ML Vial IV.PUSH PRN ×2 (10:27→10:29)
[2018-03-08 10:33] VITALS: BP 48/28; PULSE 40; RESP 6
[2018-03-08] MEDS ORDERED: Piperacil/Tazo 4.5 GM Premix 4.5 GM/100 ML BAG IV.SIG SCH (11:00)
--- NOTE | 2018-03-08 11:26 | P.DN ---
- Provider Primary care physician: No Primary Care Physician Consults: 03/02/18 21:54 Consult to Psychiatry Routine Consulting Provider: Rashad Grey Reason for Consultation: ex parte evaluation Notified:: Service Spoke with:: left message Date Notified:: 03/02/18 Time Notified:: 22:11 Comments:: left message on ext [phone] Ordering Provider: LIZ - Admitting Diagnosis (1) Dehydration (2) Adult failure to thrive (3) Conjunctivitis (4) Acute kidney injury (5) Dementia (6) Respiratory decompensation - Date and Time Date of admission: 03/02/18 21:55 Date of : 03/08/18 - Summary Procedures: No procedures warranted as the pt was DNR/ DNI and the family wished to uphold those wishes and not pursue heroic measures. Brief History: 62-year-old male with a past medical history significant for hypertension and hyperlipidemia was brought in the emergency department under ex parte for further evaluation. The patient was reportedly found in his home covered in urine and feces and unable to care for himself. During her interview, the patient believes that he is in a bank. 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 He denies having any difficulties with self-care including bathing and feeding himself. He does report he was doing well until a few days ago when he started to feel as if his body was falling apart and he became more tired than usual. He reports he does not see a doctor and does not take medication because he cannot afford them. He believes it is 2017 and he is in [facility]. He denies any chest pain or shortness of breath. No fevers/chills. No abdominal pain. No nausea/vomiting/diarrhea. No lateralizing signs/symptoms. The patient has purulent drainage and crusting surrounding his left eye and both eyes are erythematous. He denies having any eye pain, blurriness or symptoms. Result Diagrams: 03/05/18 06:03 03/08/18 06:28 Significant Findings: Abnormal Lab Results 03/08/18 03/08/18 06:28 09:13 Puncture Site Left radial Patient Temperature 98.6 O2 Saturation 88 L* ABG pH 7.08 L* ABG pCO2 68 H* ABG pO2 87 ABG HCO3 19 L ABG O2 Content 16.7 ABG Base Excess -9.2 L ABG Methemoglobin 1.6 Cameron Test Present Hemoglobin 13.4 Carboxyhemoglobin 0.2 O2 Delivery Device Mask Liter Flow 8.00 Critical Value Yes Sodium 133 L Potassium 3.3 L Chloride 100 Carbon Dioxide 18.3 L Anion Gap 15 BUN 18 Creatinine 1.06 Estimated GFR 71 L Random Glucose 174 H Calcium 8.2 L Magnesium 1.9 D Hospital Course: Respiratory decompensation/ Tachycardia ABG with CO2 retention. CXR with positive fluid balance. Lasix was ordered. He was started on a nonrebreather. The pt was transferred to [facility] for possible High- Flow or BiPAP. The pt continued to decompensate with worsening respiratory status and hypotension. The pt's family was contacted and the pt's DNR status was upheld. No heroic measures were requested. The pt was given morphine and Ativan IV as needed. The pt 03/08/18. Acute kidney injury The pt received IVFs. Hypernatremia Improved with D5W. Hypokalemia Received IV repletion. Conjunctivitis We continued antibiotic eye drops. Left eye culture with MRSA. Ex parte Psychiatry was consulted and the Marin[place] act was lifted. Hypertension/hyperlipidemia He received clonidine as needed. HX of alcohol abuse He was placed on CIWA protocol. Diarrhea Stool positive for C diff Ag but negative for toxin.
[2018-03-08] MEDS ORDERED: MethylPREDNISolone Sod Succinate Inj 125 MG/2 ML Vial IV.PUSH SCH (18:00)
== END 2018-03-08 10:40 | disposition expired ==
LOC: NEPE 17:39 → INTOOBSV 20:30 → NEDA 20:30 → NEPGCP 23:40 → N05 03-07 18:30 → HIMC 03-08 10:15
PROVIDERS: ADMIT Hospitalist; ATTEND Hospitalist